=== PATIENT | male | born 1940 | race Caucasian/White ===

== ENCOUNTER → 2018-09-07 | Outpatient (CLI) | payer OTHER | END | disposition home or self-care (01) | LOC: RAH 11:47 | PROVIDERS: ATTEND Internal Medicine | DX: I10 Essential (primary) hypertension (principal); I70.0 Atherosclerosis of aorta; K57.90 Diverticulosis of intestine, part unspecified, without perforation or abscess without bleeding; K80.20 Calculus of gallbladder without cholecystitis without obstruction; M47.815 Spondylosis without myelopathy or radiculopathy, thoracolumbar region; I25.10 Atherosclerotic heart disease of native coronary artery without angina pectoris; N32.89 Other specified disorders of bladder; N20.0 Calculus of kidney | CPT/HCPCS: 71046; 74176 ==

== ENCOUNTER 2019-09-02 05:47 | Day surgery (SDC) | payer OTHER ==
[~2019-09-02] VITALS: Ht 185.4 cm; Wt 93.4 kg
[~2019-09-02 05:47] MED LIST: ASPI-555 PO; CYAN50008 PO; FLUT16H NASAL; FOLI0.8C PO; GABA-529 PO; IPRA21SP NS; LOSA50TA64 PO; ROSU10TA28 PO
[2019-09-02] MEDS ORDERED: SODIUM CHLORIDE 0.9% 1000ML 1,000 ML IV ONE (06:32)
[2019-09-02] MEDS ORDERED: GLYCOPYRROLATE 0.2 MG/ML 5 ML VIAL ONE (06:37)
[2019-09-02] MEDS ORDERED: PROPOFOL 10 MG/ML 20ML VIAL IV ONE ×2 (06:37)
[2019-09-02 06:43] VITALS: BP 113/63
[2019-09-02 07:30] VITALS: BP 138/65
[2019-09-02 07:35] VITALS: BP 94/54
[2019-09-02 07:45] VITALS: BP 102/56
[2019-09-02 08:00] VITALS: BP 103/56
--- NOTE | 2019-09-02 08:10 | NUR ---
PT LEFT VIA WHEELCHAIR IN PVT CAR WITH D/C INSTRUCTIONS GIVEN TO ALONG WITH F/U APPT. PT V/S STABLE WITH NO COMPLICATIONS
== END 2019-09-02 08:10 | disposition home or self-care (01) ==
LOC: DAH 05:47 → ENDO 05:47
PROVIDERS: ATTEND Internal Medicine Gastroenterology
DX: R10.30 Lower abdominal pain, unspecified (principal); K57.30 Diverticulosis of large intestine without perforation or abscess without bleeding; K64.0 First degree hemorrhoids; K59.01 Slow transit constipation; E78.5 Hyperlipidemia, unspecified; J44.9 Chronic obstructive pulmonary disease, unspecified; I10 Essential (primary) hypertension; Z86.010 Personal history of colon polyps; Z88.8 Allergy status to other drugs, medicaments and biological substances; K21.9 Gastro-esophageal reflux disease without esophagitis; Z88.1 Allergy status to other antibiotic agents; Z88.2 Allergy status to sulfonamides; Z79.82 Long term (current) use of aspirin; Z79.899 Other long term (current) drug therapy; Z98.890 Other specified postprocedural states; Z87.442 Personal history of urinary calculi; Z90.79 Acquired absence of other genital organ(s)
CPT/HCPCS: 45378; A4215; A4221; A4222; A4223; A4606; A4615; A4663; J2704 ×2; J3490; J7030; G0105